=== PATIENT | female | born 1990 | race Caucasian/White ===

== ENCOUNTER 2019-04-30 05:08 | Inpatient (IN) ==
[2019-04-30] MEDS ORDERED: ceFAZolin SODIUM/DEXTROSE,ISO 2 GM/50 ML BAG IV ONE ×2 (05:21→11:08)
[2019-04-30] MEDS ORDERED: OXYTOCIN 20 UNITS in RINGER'S SOLUTION,LACTATED 1,000 ML IV ONE (05:21)
[2019-04-30] MEDS ORDERED: DEXTROSE 5%-LACTATED RINGERS 1,000 ML IV PRN (05:21)
[2019-04-30 06:00] LABS: Cocaine Ur Negative (NEGATIVE); Urine Barbiturate Negative (NEGATIVE); Urine Benzodiazepines Negative (NEGATIVE); Urine Opiates Negative (NEGATIVE); Urine PCP Negative (NEGATIVE); Urine THC Negative (NEGATIVE)
--- NOTE | 2019-04-30 07:16 | ANES ---
Anesthesia Pre Procedure Eval HOME MEDICATIONS Pnv No.121/Iron/Folic Acid [ Multivitamin Tablet] 1 ea PO DAILY 04/30/19 [Last Taken 04/29/19] Allergies/Adverse Reactions: Allergies Allergy/AdvReac Type Severity Reaction Status Date / Time No Known Allergies Allergy Verified 04/24/19 13:30 - Planned Procedure Planned Procedure: Section Medication List Reviewed:: Yes Allergies Verified: Yes Medical History (Updated 04/24/19 @ 13:40 by Angeline Richards MD) Hypoglycemia Onset Date: ~2016 Breast lump in female Onset Date: ~09/25/12 Mastitis Onset Date: ~09/25/12 Mastodynia Onset Date: ~10/03/12 Spontaneous Onset Date: ~07/05/16 Surgical History (Updated 04/24/19 @ 13:41 by Angeline Richards MD) Previous delivery, antepartum Family History (Updated 09/26/18 @ 14:30 by Iza Cooper LPN) Father Hypertension Grandmother Hypertension Cirrhosis of liver Grandmother Diabetes Cancer unknown type - Family Anesthesia History Family History:: no untoward family reactions to anesthesia - Airway/Neck/Teeth Within Normal Limits:: Yes Teeth Condition: intact Neck Exam: full range of motion Mallampatti Score: 1 Thyromental (T-M) distance: > 6 cm Mandibulo Hyoid distance: > 3 cm - Respiratory Respiratory Physical: lungs clear Smoking Status: Never smoker Sleep Apnea currently treated: No Sleep Apnea by current assessment: No - Cardiovascular Tolerate Activity: Good Heart Sounds: S1 & S2, Regular - Anesthesia Assessment and Plan ASA Class: PS, II Anesthesia Type Plan: Spinal - bilat TAP block Planned difficult intubation/equipment available: No
--- NOTE | 2019-04-30 09:03 | ANES ---
Post Anesthesia Assessment - Vital Signs Vitals: Last Vital Signs Temp 36.7 C 04/30/19 08:40 Pulse 82 04/30/19 09:00 Resp 12 04/30/19 09:00 BP 117/64 04/30/19 09:00 Pulse Ox 99 04/30/19 09:00 Airway Patency: Normal - Mental Status Level Of Consciousness: Awake - Pain Level Pain Score: 0 - N/V Assessment Nausea/Vomiting Presence: None Dehydration:: No
--- NOTE | 2019-04-30 09:03 | ANES ---
Post Anesthesia Discharge - Transfer of Care Transfer of Care handoff given to nurse: Yes - Discharge from PACU Discharge from PACU when meets criteria: Yes
--- NOTE | 2019-04-30 09:04 | OR ---
Operative Report - Dictated Report Narrative: Date of delivery: 04/30/2019 Time of delivery: 755 Gender: female weight: 3331 grams APGARS: 04/15 Preoperative diagnosis: IUP @ 39w 2d, history of delivery x2 Postoperative diagnosis: same Procedure: repeat delivery Surgeon: Dr. Richards Anesthesia: spinal Anesthesiologist: Andrew Bone CRNA Description of the procedure: The patient was taken to the operating room where spinal anesthesia was placed. She was then prepped and draped in the supine position in the standard surgical fashion. A Long catheter was placed in the bladder. A time out was performed. A Pfannestiel skin incision was made following her prior incision. The incision was carried through the subcutaneous tissue. The fascia was incised in the midline. The fascial incision was extended sharply bilaterally. The fascia was tented up with Adelso clamps and dissected off the underlying rectus muscles. The rectus muscles were in the midline. The peritoneum was entered sharply. A large Kendell retractor was placed. The lower uterine segment was incised in a low transverse fashion. The uterine incision was extended bluntly. The membranes were ruptured. A large amount of clear amniotic fluid was noted. The head was delivered without difficulty followed by the shoulders and the rest of the infant. The cord was clamped and cut and the infant was handed off to the attending pediatric staff. The placenta was delivered by expression and appeared intact. The uterus was cleared of all clots and debris. The uterus was closed with a single layer of 0-vicryl in a running locking fashion. The uterine incision was inspected and appeared hemostatic. The Kendell retractor was removed from the abdomen. The uterine incision was reinspected and appeared hemostatic. A few areas of bleeding were noted on the bladder peritoneum and these were made hemostatic. All subfascial tissues and the rectus muscles were inspected for hemostatis. The fascia was closed with 1-0 vicryl. The subcutaneous tissue was copiously irrigated and made hemostatic. The subcutaneous tissue's space was closed with 2-0 vicryl. The skin was closed with 3-0 monocryl on a Farooq needle. The left corner on the incision was noted to be bleeding and a suture was placed across for hemostatis. [place] vora was placed over the incision. All sponge, lap, and needle counts were correct. The patient tolerated the procedure well. She was transferred to the recovery room in stable condition. EBL: 800 mL Complications: none Specimens: none
[2019-04-30] MEDS: RINGER'S SOLUTION,LACTATED 1,000 ML IV ONE ×2 (09:30→16:10)
[2019-04-30] MEDS ORDERED: OXYTOCIN/DEXTROSE 5%-WATER 30 UNITS/500 ML BAG IV ONE (10:58)
--- NOTE | 2019-04-30 11:07 | PN ---
Herve Note - Interim Date: 04/30/19 Time: 11:01 Narrative: 04/30/19 11:01 Called to the patient's bedside due to hemorrhage. A manual uterine exploration was undertaken and the patient's cervix is 2cm. Given that the patient's cervix is only 2 cm I am unable to pass my hand to do a manual uterine exploration. Therefore, will take the patient for emergent D&C to remove the remaining clots as the clots in the uterus will prevent the uterus from roxann. Given attempts at manual uterine exploration will give Ancef 2 grams IV x1 for endometritis prophylaxis. The patient had a large amount of fluid at delivery consistent with likely polyhydramnios and that is likely the reason for the PPH. All risks, benefits, and alternatives of the procedure were explained to the patient and the patient consented to the procedure. The patient's BP is low in the hypotensive range and she became initially tachycardic in the 140s-150s range. Her pulse is now back to the 90s. However, given a large amount of blood loss and the anticipated clots that are remaining in the uterus will transfuse one unit of PRBCs. Check CBC after transfusion and then in the morning.
--- NOTE | 2019-04-30 11:18 | ANES ---
Anesthesia Pre Procedure Eval Vitals/Labs: Last Vital Signs Temp 37.0 C 04/30/19 11:06 Pulse 110 H 04/30/19 11:06 Resp 18 04/30/19 11:06 BP 94/57 04/30/19 11:06 Pulse Ox 99 04/30/19 11:06 HOME MEDICATIONS Pnv No.121/Iron/Folic Acid [ Multivitamin Tablet] 1 ea PO DAILY 04/30/19 [Last Taken 04/29/19] Allergies/Adverse Reactions: Allergies Allergy/AdvReac Type Severity Reaction Status Date / Time No Known Allergies Allergy Verified 04/24/19 13:30 - Planned Procedure Planned Procedure: D&C Medication List Reviewed:: Yes Allergies Verified: Yes Medical History (Updated 04/24/19 @ 13:40 by Angeline Richards MD) Hypoglycemia Onset Date: ~2016 Breast lump in female Onset Date: ~09/25/12 Mastitis Onset Date: ~09/25/12 Mastodynia Onset Date: ~10/03/12 Spontaneous Onset Date: ~07/05/16 Surgical History (Updated 04/24/19 @ 13:41 by Angeline Richards MD) Previous delivery, antepartum Family History (Updated 09/26/18 @ 14:30 by Iza Cooper LPN) Father Hypertension Grandmother Hypertension Cirrhosis of liver Grandmother Diabetes Cancer unknown type - Family Anesthesia History Family History:: no untoward family reactions to anesthesia, no familial bleeding tendencies, no family history of clotting disorders, no family history of premature - Airway/Neck/Teeth Within Normal Limits:: Yes Teeth Condition: intact Mallampatti Score: 1 Thyromental (T-M) distance: > 6 cm Mandibulo Hyoid distance: > 3 cm - Respiratory Respiratory Physical: lungs clear Smoking Status: Never smoker Discussed smoking cessation including day of surgery: No Sleep Apnea currently treated: No Sleep Apnea by current assessment: No Discussed Risks/Treatment of SIMONA: No - Cardiovascular Tolerate Activity: Good Heart Sounds: S1 & S2, Regular - Anesthesia Assessment and Plan ASA Class: PS, II, E Anesthesia Type Plan: MAC
--- NOTE | 2019-04-30 12:05 | OR ---
Operative Report - Dictated Report Narrative: Preoperative diagnosis: PPH, uterine atony secondary to polyhydramnios Postoperative diagnosis: same Procedure: Suction D&C, sharp curettage, placement of uterine balloon Surgeon: Dr. Richards Anesthesia: MAC Description of the procedure: The patient was taken to the operating room where MAC anesthesia was induced without difficulty. She was then prepped and draped in the lithotomy position in the standard surgical fashion. Attention was then turned to the vagina. A sterile speculum was placed in the patient's vagina. The anterior lip of the cervix was grasped with a single toothed tenaculum. A #12 suction curette was used and a large amount of clot was retrieved along with blood. A gentle sharp curettage was performed. There was no evidence of products of conception. A Long balloon was placed in the uterus and a total of 70 mL of saline were placed in the Long balloon. The Long catheter was attached to a bag to measure output from the uterus. All instruments were removed from the patient's vagina. All sponge, lap, and needle counts were correct. The patient tolerated the procedure well. She was transferred to the recovery room in stable condition. EBL: 400 mL (total EBL 2184 mL) Complications: none Specimens: none Given the amount of blood loss will give an additional unit of PRBC and 2 units of FFP.
--- NOTE | 2019-04-30 12:15 | ANES ---
Post Anesthesia Discharge - Transfer of Care Transfer of Care handoff given to nurse: Yes - Discharge from PACU Discharge from PACU when meets criteria: Yes - Discharge to ASU Discharge to ASU-no complications/pt stable: Yes
[2019-04-30] MEDS ORDERED: SENNOSIDES 8.6 MG TABLET PO PRN (12:51)
[2019-04-30] MEDS ORDERED: oxyCODONE HCL/ACETAMINOPHEN 1 TAB TABLET PO PRN (12:51)
[2019-04-30] MEDS ORDERED: ONDANSETRON HCL/PF 2 MG/ML VIAL IV PRN (12:51)
[2019-04-30] MEDS ORDERED: BISACODYL 10 MG SUPP.RECT RC PRN (12:51)
[2019-04-30] MEDS ORDERED: diphenhydrAMINE HCL 25 MG CAPSULE PO PRN (12:51)
[2019-04-30] MEDS: oxyCODONE HCL/ACETAMINOPHEN 1 TAB TABLET PO PRN ×3 (13:24→20:09)
[2019-04-30] MEDS: IBUPROFEN 800 MG TABLET PO PRN ×2 (13:25→19:21)
--- NOTE | 2019-04-30 15:20 | ANES ---
Anesthesia Procedure Note Procedure Note: ANESTHESIA PROCEDURE NOTE Date of procedure: 04/30/2019. Time of procedure: 40. Performed by: Andrew Bone CRNA Train Engineer: Brandi James RN . Preprocedure diagnosis: Previous section. Post procedure diagnosis: Same. Procedure: Ultrasound-guided bilateral tap block Indications: Postoperative analgesia. Findings: Patient placed in supine position in the PACU. Patient's right abdominal wall was prepped with ChloraPrep. Ultrasound was utilized to identify the fascial layer between the internal oblique and trans-abdominus muscles. A 20-gauge 4 inch regional block needle was advanced under ultrasound guidance until tip of needle was positioned just posterior to fascial layer. 20 mL of 0.25% Marcaine with epinephrine 1-200,000 was injected with adequate spread of local anesthesia noted. Procedure was then repeated on patient's left side. EBL: Minimal. Fluids: N/A. Specimen: N/A. Post procedure condition: The patient tolerated the procedure well. No complications were noted. Thank you for this consultation Andrew Bone CRNA
--- NOTE | 2019-04-30 16:10 | PN ---
Progess Note - Interim Date: 04/30/19 Time: 16:07 Narrative: 04/30/19 16:07 The patient is doing well. She is NAD and her color is good. BP is normal and HR is normal Output from the Long in the uterus is 100 mL since surgery. Attempted to remove 10 mL from the uterine balloon and the bleeding picked up and it was about 100 mL so an additional 10 mL of saline were placed in the uterine balloon. Continue uterine balloon until the AM. Will attempt to remove 10 mL of saline every 2 hours in the morning CBC after blood products are done and again in the AM
[2019-04-30] MEDS: SIMETHICONE 80 MG TAB.CHEW PO PRN ×2 (18:17→22:23)
[2019-04-30] MEDS: DOCUSATE SODIUM 100 MG CAPSULE PO SCH (21:46)
[2019-04-30 22:18] LABS: Hematocrit 30.2 % (37.0-47.0); Hemoglobin 10.3 gm/dL (12.5-16.0); Mean Cell Volume 88.8 fl (78-100); Mean Corpuscular Hemoglobin 30.3 pg (27-31); Mean Corpuscular Hgb Conc 34.1 g/dl (32-36); Neutrophil # 9.1 K/mm3 (1.3-6.0); Neutrophil % 78.8 % (42-75.0); Platelet Count 127 K/mm3 (150-450); Red Cell Distribution Width 14.2 % (11.5-14.0); White Blood Count 11.5 K/mm3 (4.0-10.5)
[2019-05-01] MEDS: RINGER'S SOLUTION,LACTATED 1,000 ML IV ONE ×2 (00:14→08:09)
[2019-05-01] MEDS: IBUPROFEN 800 MG TABLET PO PRN ×4 (01:03→21:02)
[2019-05-01] MEDS: oxyCODONE HCL/ACETAMINOPHEN 1 TAB TABLET PO PRN ×7 (01:03→21:02)
[2019-05-01] MEDS ORDERED: OXYTOCIN/DEXTROSE 5%-WATER 30 UNITS/500 ML BAG IV ONE (04:02)
[2019-05-01] MEDS: SIMETHICONE 80 MG TAB.CHEW PO PRN ×2 (04:32→10:30)
[2019-05-01 06:18] LABS: Hematocrit 29.8 % (37.0-47.0); Hemoglobin 10.3 gm/dL (12.5-16.0); Mean Corpuscular Hemoglobin 30.7 pg (27-31); Mean Corpuscular Hgb Conc 34.6 g/dl (32-36); Mean Platelet Volume 9.8 fl (8-12.5); Neutrophil # 7.4 K/mm3 (1.3-6.0); Neutrophil % 77.3 % (42-75.0); Platelet Count 121 K/mm3 (150-450); Red Blood Count 3.35 M/mm3 (4.2-5.4); Red Cell Distribution Width 14.6 % (11.5-14.0); White Blood Count 9.6 K/mm3 (4.0-10.5)
--- NOTE | 2019-05-01 08:46 | PN ---
Subjective - Date and Time Seen Date: 05/01/19 Time: 08:42 Subjective Narrative: Patient without complaints Objective Objective Narrative: See vital signs - Review of Systems Generalized/Overall Review: Reports: No Symptoms Reported Misc: All systems neg except as marked - Vitals Vitals: Last Vital Signs Temp 37 C 04/30/19 18:11 Pulse 74 05/01/19 04:34 Resp 16 05/01/19 04:34 BP 102/61 05/01/19 04:34 Pulse Ox 99 05/01/19 04:34 - Abnormal Lab Findings Abnormal Lab Findings: Abnormal Lab Results 04/30/19 04/30/19 05/01/19 Range/Units 05:39 22:15 06:03 WBC 11.5 H (4.0-10.5) K/mm3 RBC 3.40 L 3.35 L (4.2-5.4) M/mm3 Hgb 10.3 L 10.3 L (12.5-16.0) gm/dL Hct 30.2 L 29.8 L (37.0-47.0) % RDW 14.2 H 14.6 H (11.5-14.0) % Plt Count 127 L 121 L (150-450) K/mm3 Immature Gran % (Auto) 0.50 H (0.001-0.429) % Immature Gran # (Auto) 0.04 H 0.05 H (0.000-0.0310) K/mm3 Neutrophils % 78.8 H 77.3 H (42-75.0) % Lymphocytes % 13.7 L 14.9 L (20-51) % Neutrophils # 9.1 H 7.4 H (1.3-6.0) K/mm3 Lymphocytes # 1.43 L (1.5-3.5) k/mm3 Crossmatch See Detail - Exam Constitutional: Present: Alert, Oriented x3, Cooperative, No distress Abdomen: Present: soft, nontender, nondistended - incision c/d/i Extremity: Present: non-tender, no calf tenderness Skin Exam: Present: normal color, warm/dry, no cyanosis Appearance: Present: appropriate appearance Eye contact: Present: cooperative Thoughts: Present: normal thought pattern Cauti Physician Documentation - Urinary Catheter Management Urethral (Long) Urethral Indwelling: Yes Date of Insertion: 04/30/19 Time of Insertion: 07:40 Assessment/Plan Plan Narrative: POD 1 s/p repeat delivery and emergent D&C for PPH Doing very well Normal VS, stable hemoglobin, adequate UOP I removed 10 mL from the balloon in the uterus. Remove 10 mL every hour. Once uterine balloon is removed then remove Long as well. - Problems/Diagnosis (1) Acute blood loss anemia Problem: Acute
[2019-05-01] MEDS: DOCUSATE SODIUM 100 MG CAPSULE PO SCH ×2 (10:38→21:02)
[2019-05-02] MEDS: oxyCODONE HCL/ACETAMINOPHEN 1 TAB TABLET PO PRN ×5 (01:56→23:04)
[2019-05-02] MEDS: IBUPROFEN 800 MG TABLET PO PRN ×4 (03:38→23:04)
--- NOTE | 2019-05-02 08:14 | PN ---
Subjective - Date and Time Seen Date: 05/02/19 Time: 08:13 Subjective Narrative: Patient without complaints Objective Objective Narrative: See vital signs - Review of Systems Generalized/Overall Review: Reports: No Symptoms Reported Misc: All systems neg except as marked - Vitals Vitals: Last Vital Signs Temp 36.7 C 05/02/19 03:38 Pulse 70 05/02/19 03:38 Resp 16 05/02/19 03:38 BP 98/57 05/02/19 03:38 Pulse Ox 98 05/02/19 03:38 - Exam Constitutional: Present: Alert, Oriented x3, Cooperative, No distress Abdomen: Present: soft, nontender, nondistended - incision c/d/i Extremity: Present: non-tender, no calf tenderness Skin Exam: Present: normal color, warm/dry, no cyanosis Appearance: Present: appropriate appearance Eye contact: Present: cooperative Thoughts: Present: normal thought pattern Cauti Physician Documentation - Urinary Catheter Management Urethral (Long) Urethral Indwelling: No Date of Insertion: 04/30/19 Time of Insertion: 07:40 Date of Removal: 05/01/19 Time of Removal: 15:00 Assessment/Plan Plan Narrative: POD 2 s/p repeat , D&C for PPH Doing well Minimal bleeding VSS Discharge tomorrow - Problems/Diagnosis (1) Acute blood loss anemia Problem: Acute
[2019-05-02] MEDS: DOCUSATE SODIUM 100 MG CAPSULE PO SCH ×2 (08:48→19:59)
--- NOTE | 2019-05-02 14:40 | ANES ---
Post Anesthesia Assessment - Vital Signs Vitals: Last Vital Signs Temp 36.9 C 05/02/19 07:00 Pulse 98 05/02/19 07:00 Resp 16 05/02/19 07:00 BP 114/75 05/02/19 07:00 Pulse Ox 99 05/02/19 07:00 Airway Patency: Normal - Mental Status Level Of Consciousness: Awake - Pain Level Pain Score: 0 - N/V Assessment Nausea/Vomiting Presence: None Dehydration:: No
[2019-05-03] MEDS: IBUPROFEN 800 MG TABLET PO PRN ×2 (06:13→14:13)
[2019-05-03] MEDS: oxyCODONE HCL/ACETAMINOPHEN 1 TAB TABLET PO PRN ×3 (06:13→14:12)
--- NOTE | 2019-05-03 07:04 | PN ---
Subjective - Date and Time Seen Date: 05/03/19 Time: 07:02 Subjective Narrative: Patient without complaints Objective Objective Narrative: See vital signs - Review of Systems Generalized/Overall Review: Reports: No Symptoms Reported Misc: All systems neg except as marked - Vitals Vitals: Last Vital Signs Temp 36.7 C 05/02/19 19:50 Pulse 68 05/03/19 02:57 Resp 16 05/03/19 02:57 BP 112/74 05/03/19 02:57 Pulse Ox 99 05/02/19 19:50 - Exam Constitutional: Present: Alert, Oriented x3, Cooperative, No distress Abdomen: Present: soft, nontender, nondistended - fundus is firm Extremity: Present: non-tender, no calf tenderness Skin Exam: Present: normal color, warm/dry, no cyanosis Appearance: Present: appropriate appearance Eye contact: Present: cooperative Thoughts: Present: normal thought pattern Cauti Physician Documentation - Urinary Catheter Management Urethral (Long) Urethral Indwelling: No Date of Insertion: 04/30/19 Time of Insertion: 07:40 Date of Removal: 05/01/19 Time of Removal: 15:00 Assessment/Plan Plan Narrative: POD 3 s/p delivery and D&C for PPH Doing well VSS Follow-up in 2 weeks for incision check or sooner for any other concerns - Problems/Diagnosis (1) Acute blood loss anemia Problem: Acute
[2019-05-03] MEDS: DOCUSATE SODIUM 100 MG CAPSULE PO SCH (09:11)
[2019-05-03 10:40] VITALS: BP 117/80
== END 2019-05-03 14:45 | disposition home or self-care (01) | DRG 787 ==
LOC: MS 05:08 → EDUNIT# 08:00 → OB 11:26
PROVIDERS: ADMIT Obstetrics & Gynecology; ATTEND Obstetrics & Gynecology
PROC: [UNRECOGNIZED PROCEDURE] (2019-04-30 11:25)
CPT/HCPCS: 36415; 59025; 80307; 85025; 86850; P9016